=== PATIENT | male | born 1960 | race Two or more races ===

== ENCOUNTER 2020-09-02 12:54 | Day surgery (SDC) | payer OTHER ==
[~2020-09-02] VITALS: Ht 193 cm; Wt 158.7 kg
[2020-09-02 13:40] VITALS: BP 134/77
[2020-09-02 14:12] LABS: BASOPHILS % (AUTO) 1 % (0-1); EOSINOPHILS % (AUTO) 3 % (1-7); LYMPHOCYTES % (AUTO) 22 % (22-44); MEAN CORPUSCULAR HEMOGLOBIN 30.1 pg (27.5-34.5); MEAN CORPUSCULAR HGB CONC 32.8 g/dL (33.2-36.2); MEAN PLATELET VOLUME 7.3 fL (7.4-10.4); MONOCYTES % (AUTO) 9 % (2-9); NEUTROPHILS % (AUTO) 65 % (42-75); PLATELET COUNT 293 x10^3/uL (130-400); RED BLOOD COUNT 4.05 x10^6/uL (4.38-5.82); RED CELL DISTRIBUTION WIDTH 13.8 % (9.4-14.8)
[2020-09-02 14:20] LABS: ALANINE AMINOTRANSFERASE 23 U/L (12-78); ANION GAP 7 mmol/L (5-15); CALCIUM 9.2 mg/dL (8.5-10.1); CHLORIDE 108 mmol/L (98-107); CREATININE 0.99 mg/dL (0.7-1.3)
[2020-09-02 14:22] LABS: ALKALINE PHOSPHATASE 92 U/L (45-117); BILIRUBIN,TOTAL 0.3 mg/dL (0.2-1.0); TOTAL PROTEIN 7.3 g/dL (6.4-8.2)
[2020-09-02] MEDS ORDERED: TRAZ150T62 PO (14:30)
[2020-09-02] MEDS ORDERED: FURO-93 PO (14:30)
[2020-09-02] MEDS ORDERED: ATOR20TA37 PO (14:30)
[2020-09-02] MEDS ORDERED: POTA20PA25 PO (14:30)
[2020-09-02] MEDS ORDERED: CLOP75TA52 PO (14:30)
[2020-09-02] MEDS ORDERED: LOSA50TA2 PO (14:30)
[2020-09-02] MEDS ORDERED: LANTUS INJ (14:30)
[2020-09-02] MEDS ORDERED: VENL75TA PO (14:30)
[2020-09-02] MEDS ORDERED: HUMALOG INJ (14:30)
[2020-09-02] MEDS ORDERED: LIDOCAINE 1%, 10ML ONE ×3 (15:02→18:05)
[2020-09-02] MEDS ORDERED: NALOXONE 1 MG/ML, 2ML ONE (15:31)
[2020-09-02] MEDS ORDERED: PROTAMINE SULFATE 10 MG/ML, 25ML ONE (15:31)
[2020-09-02] MEDS ORDERED: FLUMAZENIL 0.1 MG/1 ML, 5ML ONE (15:31)
[2020-09-02] MEDS ORDERED: MIDAZOLAM 1 MG/ML, 5ML ONE ×2 (15:31→16:29)
[2020-09-02] MEDS ORDERED: HEPARIN 1,000 UNITS/ML, 10ML ONE (15:31)
[2020-09-02] MEDS ORDERED: FENTANYL PF 100 MCG/2ML ONE ×2 (15:31→16:29)
[2020-09-02] MEDS ORDERED: DIPHENHYDRAMINE 50 MG/ML, 1ML ONE (16:28)
[2020-09-02] MEDS ORDERED: VISIPAQUE 270 MG/ML, 150ML BOTTLE ONE (18:19)
[2020-09-02] MEDS ORDERED: VISIPAQUE 270 MG/ML, 50ML BOTTLE ONE (18:19)
== END 2020-09-02 20:50 | disposition home or self-care (01) ==
LOC: SDC 12:54
PROVIDERS: ATTEND Surgery
DX: M62.261 Nontraumatic ischemic infarction of muscle, right lower leg (principal); I70.213 Atherosclerosis of native arteries of extremities with intermittent claudication, bilateral legs; M71.38 Other bursal cyst, other site; E11.9 Type 2 diabetes mellitus without complications; I10 Essential (primary) hypertension; I65.23 Occlusion and stenosis of bilateral carotid arteries; G47.33 Obstructive sleep apnea (adult) (pediatric); F33.9 Major depressive disorder, recurrent, unspecified; E66.01 Morbid (severe) obesity due to excess calories; Z79.02 Long term (current) use of antithrombotics/antiplatelets; Z79.4 Long term (current) use of insulin; Z79.899 Other long term (current) drug therapy; Z87.891 Personal history of nicotine dependence; Z88.5 Allergy status to narcotic agent; Z98.890 Other specified postprocedural states
CPT/HCPCS: 10060; 37225; 75625; 75710; 76937; 80053; 82962; 85025; 99156; 99157; C1714; C1751; C1760; C1769; C1894; C2623; J1200; J1644; J2250; J3010; Q9966; 75630; J2720; J2310

== ENCOUNTER 2020-09-02 22:59 | Emergency (ER) | payer OTHER ==
[~2020-09-02] VITALS: Ht 193 cm; Wt 156.0 kg
[~2020-09-02 22:59] MED LIST: ATOR20TA37 PO; CLOP75TA52 PO; FURO-93 PO; HUMALOG INJ; LANTUS INJ; LOSA50TA2 PO; POTA20PA25 PO; TRAZ150T62 PO; VENL75TA PO
[2020-09-02 23:22] VITALS: BP 124/83
--- NOTE | 2020-09-03 00:15 | NUR ---
NOT IN LOBBY WHEN CALLED
--- NOTE | 2020-09-03 00:32 | NUR ---
NOT IN LOBBY WHEN CALLED
--- NOTE | 2020-09-03 00:43 | NUR ---
NOT IN LOBBY WHEN CALLED
== END 2020-09-03 00:45 | disposition left against medical advice (07) ==
LOC: ED 23:45
DX: T81.89XA Other complications of procedures, not elsewhere classified, initial encounter (principal); Z53.21 Procedure and treatment not carried out due to patient leaving prior to being seen by health care provider

== ENCOUNTER 2020-10-07 05:31 | Inpatient (IN) | payer OTHER ==
[2020-10-05 12:04] LABS: BASOPHILS % (AUTO) 1 % (0-1); EOSINOPHILS % (AUTO) 2 % (1-7); LYMPHOCYTES % (AUTO) 23 % (22-44); MEAN CORPUSCULAR HEMOGLOBIN 30.7 pg (27.5-34.5); MEAN CORPUSCULAR HGB CONC 33.3 g/dL (33.2-36.2); MEAN PLATELET VOLUME 7.5 fL (7.4-10.4); MONOCYTES % (AUTO) 9 % (2-9); NEUTROPHILS % (AUTO) 65 % (42-75); PLATELET COUNT 258 x10^3/uL (130-400); RED BLOOD COUNT 3.81 x10^6/uL (4.38-5.82); RED CELL DISTRIBUTION WIDTH 14.3 % (9.4-14.8)
[2020-10-05 12:12] LABS: ALBUMIN 3.3 g/dL (3.4-5.0); ANION GAP 4 mmol/L (5-15); CALCIUM 9.6 mg/dL (8.5-10.1); CHLORIDE 107 mmol/L (98-107)
[2020-10-05 12:16] LABS: ALANINE AMINOTRANSFERASE 22 U/L (12-78); ALKALINE PHOSPHATASE 91 U/L (45-117); BILIRUBIN,TOTAL 0.3 mg/dL (0.2-1.0); TOTAL PROTEIN 7.3 g/dL (6.4-8.2)
[~2020-10-07] VITALS: Ht 193 cm; Wt 160.1 kg
[~2020-10-07 05:31] MED LIST changes: +BUPR-86 PO; +INSU100C SQ-INSULIN; +METO50TA82 PO; +POTA10TA5 PO
[2020-10-07] MEDS ORDERED: LACTATED RINGERS 1,000 ML IV SCH (06:00)
[2020-10-07] MEDS ORDERED: CHLORHEXIDINE 15 ML UDC PO ONE (06:00)
[2020-10-07 06:13] VITALS: BP 135/71
[2020-10-07] MEDS ORDERED: VANCOMYCIN 1,000 MG ONE (06:52)
[2020-10-07] MEDS ORDERED: BUPIVACAINE/PF 0.5% ONE (06:52)
[2020-10-07] MEDS ORDERED: HEPARIN 1,000 UNITS/ML, 30ML ONE (06:52)
[2020-10-07] MEDS ORDERED: THROMBIN (RECOMBINANT) 5,000 UNIT VIAL TP ONE (06:52)
[2020-10-07] MEDS ORDERED: EPINEPHRINE 1 MG/ML, 1ML ONE (06:52)
[2020-10-07] MEDS ORDERED: PROTAMINE SULFATE 10 MG/ML, 25ML ONE (06:53)
[2020-10-07] MEDS ORDERED: HEPARIN 1,000 UNITS/ML, 10ML ONE ×2 (06:53→10:37)
[2020-10-07] MEDS ORDERED: PROPOFOL 10 MG/ML, 20ML ONE (07:01)
[2020-10-07] MEDS ORDERED: ROCURONIUM 10MG/ML,5ML ONE (07:01)
[2020-10-07] MEDS ORDERED: LIDOCAINE 2% 100MG/5ML SYRINGE ONE (07:01)
[2020-10-07] MEDS ORDERED: MIDAZOLAM 1 MG/ML, 2ML ONE (07:01)
[2020-10-07] MEDS ORDERED: FENTANYL PF 250 MCG/5ML ONE ×2 (07:02→09:23)
[2020-10-07] MEDS ORDERED: ONDANSETRON 2MG/ML, 2ML ONE (07:02)
[2020-10-07] MEDS ORDERED: MEPERIDINE/PF 25MG/0.5ML IVPush PRN (07:30)
[2020-10-07] MEDS ORDERED: hydrALAzine 20 MG/ML, 1ML IV PRN (07:30)
[2020-10-07] MEDS ORDERED: ONDANSETRON 2MG/ML, 2ML IVPush PRN ×2 (07:30→11:00)
[2020-10-07] MEDS ORDERED: HYDROmorphone 1 MG/ML, 1ML INJ IVPush PRN (07:30)
[2020-10-07] MEDS ORDERED: OXYcodone 5 MG/5 ML ORAL.SOL UDC PO PRN (07:30)
[2020-10-07] MEDS ORDERED: ACETAMINOPHEN 325 MG TABLET PO PRN (07:30)
[2020-10-07] MEDS ORDERED: LABETALOL 5MG/ML, 20ML IV PRN (07:30)
[2020-10-07] MEDS ORDERED: SUGAMMADEX 200 MG/2 ML IVPush ONE (07:47)
[2020-10-07] MEDS ORDERED: CEFAZOLIN 1,000 MG ONE (07:47)
[2020-10-07] MEDS ORDERED: PHENYLEPHRINE 10 MG/ML ONE (07:47)
[2020-10-07] MEDS ORDERED: ENOXAPARIN 40 MG/0.4 ML SQ SCH (11:00)
[2020-10-07] MEDS ORDERED: INSULIN LISPRO 100 UNITS/ML, PEN SQ-INSULIN SCH ×2 (11:00→18:00)
[2020-10-07] MEDS: LACTATED RINGERS 1,000 ML IV SCH (11:00)
[2020-10-07] MEDS: INSULIN REGULAR 100 UNITS/ML, 3ML VIAL SQ-INSULIN SCH ×3 (11:00→21:00)
[2020-10-07] MEDS: LABETALOL 5MG/ML, 20ML IVPush SCH ×2 (11:00→18:24)
[2020-10-07] MEDS ORDERED: FENTANYL PF 100 MCG/2ML ONE (12:00)
[2020-10-07] MEDS: FENTANYL PF 100 MCG/2ML IV PRN ×2 (12:10→12:23)
[2020-10-07] MEDS: ACETAMINOPHEN 325 MG TABLET PO PRN ×2 (17:33→21:11)
[2020-10-07 19:39] VITALS: BP 104/63
[2020-10-07] MEDS: VENLAFAXINE 37.5MG TABLET PO SCH ×2 (21:00→21:09)
[2020-10-07] MEDS: BUPROPION 75 MG TABLET PO SCH (21:00)
[2020-10-07] MEDS: INSULIN GLARGINE 100 UNITS/ML, PEN SQ-INSULIN SCH (21:09)
[2020-10-07] MEDS: TRAZODONE 150MG TABLET PO SCH (21:09)
[2020-10-07] MEDS: ATORVASTATIN 80 MG TABLET PO SCH (21:11)
[2020-10-07 23:41] VITALS: BP 101/58
[2020-10-08] MEDS: LABETALOL 5MG/ML, 20ML IVPush SCH ×4 (00:41→19:21)
[2020-10-08] MEDS: LACTATED RINGERS 1,000 ML IV SCH ×3 (01:00→21:00)
[2020-10-08] MEDS: ACETAMINOPHEN 325 MG TABLET PO PRN ×5 (03:47→21:18)
[2020-10-08 03:49] VITALS: BP 122/65
[2020-10-08] MEDS: ENOXAPARIN 60 MG/0.6 ML SQ SCH ×2 (05:58→16:35)
[2020-10-08] MEDS ORDERED: ENOXAPARIN 40 MG/0.4 ML SQ SCH (06:00)
[2020-10-08] MEDS: INSULIN REGULAR 100 UNITS/ML, 3ML VIAL SQ-INSULIN SCH ×4 (07:00→21:00)
[2020-10-08 07:05] VITALS: BP 112/62
[2020-10-08] MEDS: FUROSEMIDE 20 MG TABLET PO SCH (08:00)
[2020-10-08] MEDS: BUPROPION 75 MG TABLET PO SCH ×2 (08:00→19:21)
[2020-10-08] MEDS: CLOPIDOGREL 75 MG TABLET PO SCH (08:00)
[2020-10-08] MEDS: LOSARTAN 50MG TABLET PO SCH (08:00)
[2020-10-08] MEDS: VENLAFAXINE 37.5MG TABLET PO SCH ×2 (08:00→19:21)
[2020-10-08] MEDS: METOPROLOL TARTRATE 50 MG TAB PO SCH (08:01)
[2020-10-08] MEDS: POTASSIUM CHLORIDE 10 MEQ TABLET.ER PO SCH (08:01)
[2020-10-08] MEDS: INSULIN GLARGINE 100 UNITS/ML, PEN SQ-INSULIN SCH ×2 (08:02→21:18)
[2020-10-08 14:00] VITALS: BP 102/67
[2020-10-08] MEDS: morphine SULFATE 10 MG/ML, 1ML IV PRN ×2 (19:08→21:33)
[2020-10-08 20:17] VITALS: BP 107/59
[2020-10-08] MEDS: ATORVASTATIN 80 MG TABLET PO SCH (21:18)
[2020-10-08] MEDS: TRAZODONE 150MG TABLET PO SCH (21:19)
[2020-10-09 02:03] VITALS: BP 99/58
[2020-10-09] MEDS: ENOXAPARIN 60 MG/0.6 ML SQ SCH (05:35)
[2020-10-09] MEDS: LACTATED RINGERS 1,000 ML IV SCH (06:10)
[2020-10-09 06:39] LABS: CREATININE 0.96 mg/dL (0.7-1.3)
[2020-10-09 07:42] VITALS: BP 135/68
[2020-10-09] MEDS: INSULIN REGULAR 100 UNITS/ML, 3ML VIAL SQ-INSULIN SCH ×2 (07:58→13:26)
[2020-10-09 08:44] VITALS: BP 89/41
[2020-10-09 09:30] VITALS: BP 131/73
[2020-10-09] MEDS: VENLAFAXINE 37.5MG TABLET PO SCH (09:39)
[2020-10-09] MEDS: LOSARTAN 50MG TABLET PO SCH (09:39)
[2020-10-09] MEDS: METOPROLOL TARTRATE 50 MG TAB PO SCH (09:40)
[2020-10-09] MEDS: CLOPIDOGREL 75 MG TABLET PO SCH (09:40)
[2020-10-09] MEDS: POTASSIUM CHLORIDE 10 MEQ TABLET.ER PO SCH (09:40)
[2020-10-09] MEDS: BUPROPION 75 MG TABLET PO SCH (09:40)
[2020-10-09] MEDS: FUROSEMIDE 20 MG TABLET PO SCH (09:40)
[2020-10-09] MEDS: INSULIN GLARGINE 100 UNITS/ML, PEN SQ-INSULIN SCH (09:48)
[2020-10-09] MEDS: LABETALOL 5MG/ML, 20ML IVPush SCH (13:26)
[2020-10-09 14:55] VITALS: BP 125/67
[2020-10-09] MEDS ORDERED: OXYC1TAB14 PO (15:05)
[2020-10-09] MEDS ORDERED: DOCU100C33 PO (15:05)
[2020-10-09 15:55] VITALS: BP 149/72
== END 2020-10-09 16:30 | disposition home or self-care (01) | DRG 38 ==
LOC: ORIP 05:31 → 4NE 13:28
PROVIDERS: ADMIT Surgery; ATTEND Surgery
PROC: 03CK0ZZ Extirpation of Matter from Right Internal Carotid Artery, Open Approach (ICD-10-PCS; 2020-10-07)
PROC: 03CM0ZZ Extirpation of Matter from Right External Carotid Artery, Open Approach (ICD-10-PCS; 2020-10-07)
PROC: 5A09357 Assistance with Respiratory Ventilation, Less than 24 Consecutive Hours, Continuous Positive Airway Pressure (ICD-10-PCS; 2020-10-07)
PROC: 03CH0ZZ Extirpation of Matter from Right Common Carotid Artery, Open Approach (ICD-10-PCS; principal; 2020-10-07 07:30)
PROC: 5A09357 Assistance with Respiratory Ventilation, Less than 24 Consecutive Hours, Continuous Positive Airway Pressure (ICD-10-PCS; 2020-10-08)
PROC: 5A09357 Assistance with Respiratory Ventilation, Less than 24 Consecutive Hours, Continuous Positive Airway Pressure (ICD-10-PCS; 2020-10-09)
DX: I65.21 Occlusion and stenosis of right carotid artery (principal); Z68.41 Body mass index [BMI] 40.0-44.9, adult; E11.9 Type 2 diabetes mellitus without complications; E66.01 Morbid (severe) obesity due to excess calories; G47.33 Obstructive sleep apnea (adult) (pediatric); I10 Essential (primary) hypertension
CPT/HCPCS: 36415; S0020; 71046; 80053; 82565; 82962; 85025; 86850; 86900; 93005; C1729; G0378; J0171; J0690; J1644; J1650; J2250; J2405; J2704; J2720; J3010; J3370; C1781; J1815; J2270; J2370; J7120